=== PATIENT | female | born 1995 | race Caucasian/White ===

== ENCOUNTER 2018-07-14 03:22 | Emergency (ER) | payer OTHER ==
[~2018-07-14] VITALS: Ht 160 cm; Wt 50.3 kg
[2018-07-14 03:28] VITALS: BP 108/68; PULSE 109; RESP 20; Ht 160 cm; Wt 50.3 kg
[2018-07-14] MEDS ORDERED: CLIN300C10 PO (04:00)
--- NOTE | 2018-07-14 04:12 | ERD ---
ER Documentation Chief Complaint Chief Complaint sore throat x 3days HPI 22-year-old female presents with complaint of sore throat x3 days. Patient states to have presented to an urgent care earlier today and was prescribed amoxicillin for strep throat due to positive strep test. Patient notes she did not take the amoxicillin as she is allergic to the medication. Patient also prescribed steroids for swelling of the tonsils which she has not taken as she was worried due to the urgent care prescribing her a medication she was already allergic to. Notes history of recurrent strep throat with more than 3+ episodes per year. Patient states her symptoms similar to previous episodes of strep th roat. Denies shortness of breath, changes in voice, or stridor. Patient has not taken any medication to alleviate her symptoms at this point. ROS All systems reviewed and are negative except as per history of present illness. Medications Home Meds Active Scripts Clindamycin Hcl* (Clindamycin Hcl*) 300 Mg Capsule, 300 MG PO TID for strep throat for 10 Days, #30 CAP Prov:ANTONY CARDENAS PA-C 07/14/18 Allergies Allergies: Coded Allergies: amoxicillin (Verified Allergy, Unknown, hives, 07/14/18) PMhx/Soc Medical and Surgical Hx: pt denies Medical Hx, pt denies Surgical Hx Hx Alcohol Use: No Hx Substance Use: No Hx Tobacco Use: Yes Smoking Status: Current every day smoker FmHx Family History: diabetes Physical Exam Vitals Vital Signs Date Temp Pulse Resp B/P (MAP) Pulse Ox O2 O2 Flow FiO2 Time Delivery Rate 07/14/18 101.2 109 20 108/68 97 03:28 (81) Physical Exam Const: No acute distress Head: Atraumatic Eyes: Normal Conjunctiva. No visible discharge or crusting of the eyelids. ENT: Normal External Ears, and Nose. Uvula midline, bilateral edematous tonsils 3+ in size with visible exudates. Normal voice, no hoarseness, no drooling. Neck: Full range of motion. No meningismus. Tender anterior cervical LAD. Resp: Clear to auscultation bilaterally. Normal breath sounds. No respiratory distress. No audible wheezes rales rhonchi or stridor. Cardio: Regular rate and rhythm, no murmurs Skin: No petechiae or rashes Neur: Awake and alert Psych: Normal Mood and Affect Procedures/MDM MDM: This is an otherwise healthy 22-year-old female who presents with complaint of sore throat x3 days with a recent positive strep test. And symptoms consistent with strep pharyngitis with a Centor score of 4. Exam and w/u not consistent w/ deep space infection of the face, throat, or mastoids. No evidence of impending airway compromise or meningitis. Patient stable for discharge at this time with outpatient follow-up to PCP for possible referral to ENT due to recurrent strep infections. Patient will be discharged home with prescription for clindamycin due to amoxicillin allergy. Advised to take steroids as previously prescribed by urgent care for swelling of the tonsils. Counseled patient regarding ED return precautions and advised to return if any signs of new or worsening symptoms. Patient expressed verbal understanding and agreement to treatment plan. All questions addressed and answered. Departure Diagnosis: Primary Impression: Streptococcal pharyngitis Condition: Good Patient Instructions: Strep Throat ANTONY CARDENAS PA-C Jul 14, 2018 04:12
== END 2018-07-14 04:29 | disposition home or self-care (01) ==
LOC: FTE 03:22
DX: J02.0 Streptococcal pharyngitis (principal); F17.210 Nicotine dependence, cigarettes, uncomplicated
CPT/HCPCS: 99283